=== PATIENT | female | born 1975 | race Hispanic/Latino ===

== ENCOUNTER 2024-10-16 13:37 | Observation (INO) | payer SELFPAY ==
[~2024-10-16] VITALS: Ht 167.6 cm; Wt 99.8 kg
[2024-10-16 13:40] VITALS: TEMP 98
[2024-10-16 14:37] LABS: BASOPHILS # (AUTO) 0.1 (0.0-0.1); BASOPHILS % 0.3 % (0.0-1.0); EOSINOPHILS # (AUTO) 0.3 (0.0-0.4); EOSINOPHILS % 1.3 % (0.0-6.0); HEMATOCRIT 41.3 % (34.2-44.1); HEMOGLOBIN 13.4 g/dL (12.0-16.0); LYMPHOCYTES # (AUTO) 5.7 (1.0-3.2); LYMPHOCYTES % 29.5 % (18.0-39.1); MEAN CORPUSCULAR HGB CONC 32.4 g/dL (31-35); MEAN CORPUSCULAR VOLUME 86.4 fL (81-99); MONOCYTES # (AUTO) 1.3 (0.2-0.8); MONOCYTES % 6.5 % (4.4-11.3); NEUTROPHILS # (AUTO) 11.9 (2.1-6.9); NEUTROPHILS % 61.5 % (38.7-80.0); PLATELET COUNT 303 x10e3/uL (140-360); RED BLOOD COUNT 4.78 x10e6/uL (3.6-5.1); RED CELL DISTRIBUTION WIDTH 13.6 % (11.7-14.4); WHITE BLOOD COUNT 19.34 x10e3/uL (4.8-10.8)
[2024-10-16] MEDS: FAMOTIDINE 20 MG/2 ML VIAL IV STA (14:43)
[2024-10-16] MEDS: DEXAMETHASONE SOD PHOS 10 MG/1 ML VIAL IV ONE (14:43)
[2024-10-16] MEDS: SODIUM CHLORIDE 0.9% 1000ML 1,000 ML IV STA (14:44)
[2024-10-16] MEDS: EPINEPHRINE HCL 1:1000 1ML 1 MG/ML AMP SQ ONE (14:44)
[2024-10-16 14:54] LABS: INR 0.95; PROTHROMBIN TIME 13.3 seconds (11.9-14.5)
[2024-10-16 15:05] LABS: ALBUMIN/GLOBULIN RATIO 1.1 (0.8-2.0); ANION GAP 17.5 mmol/L (8-16); BILIRUBIN,TOTAL 0.4 mg/dL (0.2-1.2); CALCIUM 8.1 mg/dL (8.4-10.2); CREATININE, SERUM 0.81 mg/dL (0.57-1.11); MAGNESIUM 1.8 MG/DL (1.3-2.1); POTASSIUM 3.5 mmol/L (3.5-5.1); TOTAL PROTEIN 5.8 g/dL (6.5-8.1)
[2024-10-16 15:10] LABS: TROPONIN I 0.014 ng/mL (0-0.300)
[2024-10-16 16:07] LABS: BILIRUBIN,URINE NEGATIVE (NEGATIVE); CLARITY,URINE CLEAR (CLEAR); COLOR,URINE YELLOW (YELLOW); GLUCOSE, URINE NEGATIVE (NEGATIVE); KETONES,URINE NEGATIVE (NEGATIVE); LEUKOCYTE ESTERASE ,URINE NEGATIVE (NEGATIVE); NITRITE,URINE NEGATIVE (NEGATIVE); PH,URINE 6.5 (5 - 7); PROTEIN,URINE DIPSTICK NEGATIVE (NEGATIVE); URINE UROBILINOGEN 0.2 mg/dL (0.2 - 1)
[2024-10-16] MEDS: DIPHENHYDRAMINE HCL INJ 50 MG/ML VIAL IV ONE (16:09)
[2024-10-16 16:13] LABS: BACTERIA,URINE FEW /HPF; EPITHELIAL CELLS,URINE MANY /LPF; WBC,URINE (MAN) 0-5 /HPF (0-5)
[2024-10-16] MEDS ORDERED: ONDANSETRON HCL INJ 2MG/ML 2ML 2 MG/ML VIAL IV PRN (18:15)
[2024-10-16 19:08] LABS: BASOPHILS % 0.1 % (0.0-1.0); HEMATOCRIT 40.2 % (34.2-44.1); HEMOGLOBIN 13.4 g/dL (12.0-16.0); LYMPHOCYTES # (AUTO) 0.4 (1.0-3.2); LYMPHOCYTES % 2.4 % (18.0-39.1); MEAN CORPUSCULAR HEMOGLOBIN 27.9 pg (28-32); MEAN CORPUSCULAR HGB CONC 33.3 g/dL (31-35); MEAN CORPUSCULAR VOLUME 83.8 fL (81-99); MONOCYTES # (AUTO) 0.1 (0.2-0.8); MONOCYTES % 0.3 % (4.4-11.3); NEUTROPHILS # (AUTO) 16.1 (2.1-6.9); NEUTROPHILS % 96.7 % (38.7-80.0); PLATELET COUNT 290 x10e3/uL (140-360); RED CELL DISTRIBUTION WIDTH 13.6 % (11.7-14.4); WHITE BLOOD COUNT 16.65 x10e3/uL (4.8-10.8)
[2024-10-16 19:11] VITALS: PULSE 74; RESP 18
[2024-10-16 20:00] VITALS: BP 150/82; O2SAT 99
[2024-10-16 20:03] VITALS: BP 169/80; PULSE 103; RESP 21; TEMP 97.8; O2SAT 94
[2024-10-16 20:04] LABS: BAND NEUTROPHILS % (MANUAL) 2 %; LYMPHOCYTES % (MANUAL) 1 % (19-48); MONOCYTES % (MANUAL) 2 % (3.4-9.0); NEUTROPHILS % (MANUAL) 95 % (40-74); PLATELET ESTIMATE ADEQUATE; PLATELET MORPHOLOGY COMMENT NORMAL; RBC MORPHOLOGY COMMENT NORMAL
[2024-10-16] MEDS: METHYLPREDNISOLONE SOD SUCC 125 MG/2ML VIAL IV SCH (20:21)
[2024-10-16] MEDS: SODIUM CHLORIDE 0.9% 1000ML 1,000 ML IV SCH (22:00)
[2024-10-16] MEDS: FAMOTIDINE 20 MG/2 ML VIAL IV SCH (22:00)
[2024-10-16 22:30] VITALS: PULSE 101; RESP 18; O2SAT 94
[2024-10-17] VITALS (10 sets, daily range): BP systolic 116–157; BP diastolic 58–90; PULSE 88–109; RESP 18–21; TEMP 97.1–97.9; O2SAT 96–99
[2024-10-17] MEDS ORDERED: POTASSIUM CHLORIDE 20 MEQ TAB CR PO PRN (01:30)
[2024-10-17] MEDS ORDERED: SIMETHICONE 80 MG CHEW PO PRN (01:30)
[2024-10-17] MEDS ORDERED: DEXTROSE 50% SYRINGE 50 ML IV PRN (01:30)
[2024-10-17] MEDS ORDERED: ALBUTEROL/IPRATROPIUM 3 ML NEB NEB PRN (01:30)
[2024-10-17] MEDS ORDERED: BENZONATATE 100 MG CAP PO PRN (01:30)
[2024-10-17] MEDS ORDERED: HYDRALAZINE HCL 20 MG/ML VIAL IV PRN (01:30)
[2024-10-17] MEDS ORDERED: DOCUSATE SODIUM 100 MG CAP PO PRN (01:30)
[2024-10-17] MEDS: MELATONIN 5 MG TABLET PO PRN (03:53)
[2024-10-17] MEDS: ACETAMINOPHEN 325 MG TAB PO PRN (03:53)
[2024-10-17 06:00] LABS: BASOPHILS % 0.1 % (0.0-1.0); HEMATOCRIT 37.9 % (34.2-44.1); HEMOGLOBIN 12.5 g/dL (12.0-16.0); LYMPHOCYTES % 5.4 % (18.0-39.1); MEAN CORPUSCULAR HEMOGLOBIN 27.8 pg (28-32); MEAN CORPUSCULAR VOLUME 84.4 fL (81-99); MONOCYTES # (AUTO) 0.1 (0.2-0.8); MONOCYTES % 0.7 % (4.4-11.3); NEUTROPHILS # (AUTO) 16.8 (2.1-6.9); NEUTROPHILS % 93.2 % (38.7-80.0); PLATELET COUNT 288 x10e3/uL (140-360); RED BLOOD COUNT 4.49 x10e6/uL (3.6-5.1); RED CELL DISTRIBUTION WIDTH 13.6 % (11.7-14.4)
[2024-10-17 06:32] LABS: ALBUMIN 3.1 g/dL (3.5-5.0); ANION GAP 11.2 mmol/L (8-16); BILIRUBIN,TOTAL 0.3 mg/dL (0.2-1.2); CALCIUM 8.5 mg/dL (8.4-10.2); CREATININE, SERUM 0.65 mg/dL (0.57-1.11); POTASSIUM 4.2 mmol/L (3.5-5.1); TOTAL PROTEIN 6.3 g/dL (6.5-8.1)
[2024-10-17] MEDS ORDERED: NO HOME MEDS (06:58)
[2024-10-17] MEDS: METHYLPREDNISOLONE SOD SUCC 125 MG/2ML VIAL IV SCH (08:04)
[2024-10-17] MEDS: HYDROCODONE/APAP 5MG-325MG TAB PO PRN (11:30)
[2024-10-17] MEDS ORDERED: ENOXAPARIN SOD INJ 40 MG/0.4 ML SYR SC SCH (17:00)
[2024-10-17] MEDS: DIPHENHYDRAMINE HCL INJ 50 MG/ML VIAL IV SCH (21:34)
[2024-10-18 03:22] VITALS: BP 147/94; PULSE 85; RESP 18; TEMP 97.5; O2SAT 100
[2024-10-18 06:35] LABS: BASOPHILS % 0.1 % (0.0-1.0); HEMATOCRIT 35.8 % (34.2-44.1); HEMOGLOBIN 11.6 g/dL (12.0-16.0); MEAN CORPUSCULAR HEMOGLOBIN 27.8 pg (28-32); MEAN CORPUSCULAR HGB CONC 32.4 g/dL (31-35); MEAN CORPUSCULAR VOLUME 85.9 fL (81-99); MONOCYTES # (AUTO) 1.4 (0.2-0.8); MONOCYTES % 6.5 % (4.4-11.3); NEUTROPHILS # (AUTO) 16.4 (2.1-6.9); NEUTROPHILS % 74.7 % (38.7-80.0); PLATELET COUNT 289 x10e3/uL (140-360); RED BLOOD COUNT 4.17 x10e6/uL (3.6-5.1); RED CELL DISTRIBUTION WIDTH 13.9 % (11.7-14.4); WHITE BLOOD COUNT 21.94 x10e3/uL (4.8-10.8)
[2024-10-18 07:01] LABS: ANION GAP 12.8 mmol/L (8-16); CREATININE, SERUM 0.64 mg/dL (0.57-1.11); POTASSIUM 3.8 mmol/L (3.5-5.1)
[2024-10-18 08:00] VITALS: BP 131/80; PULSE 71; RESP 17; TEMP 97.6; O2SAT 100
[2024-10-18] MEDS: DIPHENHYDRAMINE HCL INJ 50 MG/ML VIAL IV SCH (08:40)
[2024-10-18] MEDS ORDERED: METHYLPREDNISOLONE SOD SUCC 40 MG/ML VIAL 1ML IV SCH (09:00)
[2024-10-18 09:03] VITALS: BP 131/80; PULSE 71; RESP 17; TEMP 97.6; O2SAT 100
[2024-10-18 09:20] VITALS: PULSE 89; RESP 18; O2SAT 98
[2024-10-18 11:40] VITALS: BP 159/90; PULSE 84; RESP 21; TEMP 98.9; O2SAT 100
[2024-10-18 15:50] VITALS: BP_SYST 132; BP_SYST 143; BP_DIAS 78; BP_DIAS 83; PULSE 63; PULSE 80; RESP 19; RESP 21; TEMP 97.4; TEMP 98.6; O2SAT 100
== END 2024-10-18 16:50 | disposition home or self-care (01) ==
LOC: ER 14:05 → INTOOBSV 18:17 → ERHOLD 18:17 → MED/SURG3 20:22
PROVIDERS: ADMIT Internal Medicine; ATTEND Internal Medicine
DX: T65.891A Toxic effect of other specified substances, accidental (unintentional), initial encounter (principal); T78.2XXA Anaphylactic shock, unspecified, initial encounter; T78.09XA Anaphylactic reaction due to other food products, initial encounter; I10 Essential (primary) hypertension; E66.01 Morbid (severe) obesity due to excess calories; Z68.35 Body mass index [BMI] 35.0-35.9, adult; D72.829 Elevated white blood cell count, unspecified; Y92.019 Unspecified place in single-family (private) house as the place of occurrence of the external cause
CPT/HCPCS: 36415 ×3; 71045; 80048; 80053 ×2; 81001; 82550; 83735; 83880; 84484; 85025 ×3; 85610; 85730; 87040; 87086; 93005; 94799 ×3; 99284; G0378 ×3; J0171; J1100; J1200 ×2; J2919 ×2; J7030 ×2; J1650